=== PATIENT | male | born 2000 | race Two or more races ===

== ENCOUNTER 2022-03-16 17:19 | Emergency (ER) | payer BC, OTHER ==
[~2022-03-16] VITALS: Ht 185.4 cm; Wt 80.0 kg
[2022-03-16 18:02] VITALS: BP 93/45
[2022-03-16] MEDS ORDERED: SODIUM CHLORIDE 0.9% 500 ML IV ONE (18:15)
[2022-03-16 19:35] LABS: Urine Bacteria FEW /hpf (None Seen); Urine Blood Negative /uL (Negative); Urine Mucus FEW (None Seen); Urine Specific Gravity 1.021 (1.001-1.035); Urine WBC 2 /hpf (0 - 3)
[2022-03-16 21:01] LABS: Basophils # (auto) 0.1 10 ^3/uL (0-0.2); Basophils % (auto) 0.4 % (0.0-2.0); Eosinophils # (auto) 0.1 10 ^3/uL (0-0.8); Eosinophils % (auto) 0.5 % (0.0-7.0); Hemoglobin 14.2 g/dL (13.5-17.5); Lymphocytes # (auto) 1.4 10 ^3/uL (0.4-5.4); Lymphocytes % (auto) 9.3 % (10.0-50.0); Mean Corpuscular Hemoglobin 27.5 pg (28.0-32.0); Mean Corpuscular Hgb Conc. 32.3 g/dL (32.0-36.0); Monocytes % (auto) 6.7 % (0.0-12.0); Neutrophils # (auto) 12.8 10 ^3/uL (1.6-8.6); Neutrophils % (auto) 83.1 % (37.0-80.0); Red Blood Cells 5.18 10^6/uL (4.5-5.90); Red Cell Distribution Width 13.3 % (11.8-14.3); White Blood Cell 15.4 10^3/uL (4.4-10.8)
[2022-03-16 21:18] LABS: Albumin 4.5 g/dL (3.4-5.0); Potassium 3.8 mmol/L (3.5-5.1)
[2022-03-16 21:21] LABS: Bilirubin, Total 0.8 mg/dL (0.2-1.0); Total Protein 7.5 g/dL (6.4-8.2)
[2022-03-16] MEDS ORDERED: cefTRIAXone SOD 1,000 MG VL IM ONE (22:15)
[2022-03-16] MEDS ORDERED: CIPR500T4 PO (22:46)
== END 2022-03-16 22:52 | disposition home or self-care (01) ==
LOC: ER 17:19
DX: N39.0 Urinary tract infection, site not specified (principal); E86.0 Dehydration; R55 Syncope and collapse; Z91.040 Latex allergy status; Z91.041 Radiographic dye allergy status
CPT/HCPCS: 36415; 70450; 80053; 81001; 85025; 93005; 96372; 99285; J0696; J7040